=== PATIENT | female | born 1990 | race Caucasian/White ===

== ENCOUNTER 2021-07-19 11:49 | Emergency (ER) | payer BC, SELFPAY ==
--- NOTE | ~2021-07-19 | XR_ITS ---
EXAMINATION: XR chest 2V DATE: 07/19/2021 12:30 INDICATION: COVID-19 pneumonia. TECHNIQUE: Frontal and lateral views of the chest were obtained. COMPARISON: None. FINDINGS: The chest demonstrates clear lungs without pneumonia, pleural effusion, or pneumothorax. Th e heart size is normal. IMPRESSION: 1. No acute cardiopulmonary disease. Reviewed, dictated and finalized at location B. [facility] N[facility]
[2021-07-19 12:14] VITALS: BP 158/100; PULSE 75; RESP 14; TEMP 36.9; O2SAT 99
--- NOTE | 2021-07-19 12:17 | ECG_ITS ---
Measurements Intervals [place] Rate: 66 P: 44 AK: 112 QRS: 57 QRSD: 79 T: 50 QT: 389 QTc: 410 Interpretive Statements SINUS RHYTHM WITH SHORT [place] INTERVAL INCOMPLETE RIGHT BUNDLE BRANCH BLOCK BORDERLINE ECG Electronically Signed On 07-19-2021 13:27:32 AUTOMOBILE RELOCATION ENGINEER by Rogerio Eller D.O.
[2021-07-19 12:40] LABS: Basophils Percent Auto 0.4 % (0.2-1.2); Eosinophils Absolute Auto 0.1 K/mm3 (0-0.3); Eosinophils Percent Auto 1.8 % (0-4.4); Hematocrit 41.7 % (37.0-47.0); Hemoglobin 13.7 g/dL (12.0-15.0); Immature Granulocyte Absolute 0.02 K/mm3 (0.00-0.031); Immature Granulocyte Percent A 0.4 % (0-0.5); Lymphocytes Percent Auto 33.2 % (18.3-44.2); Mean Corpuscular HGB Conc 32.9 g/dl (32-36); Mean Corpuscular Volume 91.4 fl (80-100); Mean Platelet Volume 10.2 fl (7.4-10.4); Monocytes Absolute Auto 0.4 K/mm3 (0.1-0.6); Monocytes Percent Auto 7.7 % (2.6-8.5); Neutrophils Absolute Auto 3.1 K/mm3 (1.3-6.7); Neutrophils Percent Auto 56.5 % (45.5-73.1); Platelet Count Result 223 k/mm3 (150-375); Red Blood Count 4.56 M/mm3 (4.2-5.4); Red Cell Distribution Width 12.7 % (11.5-14.5); White Blood Count 5.4 K/mm3 (4.5-10.0)
[2021-07-19 12:47] LABS: INR 0.9; Partial Thromboplastin Time 29.7 SECONDS (22.3-36.8)
[2021-07-19 12:51] LABS: Alanine Aminotransferase 31 U/L (4-35); Albumin Level 4.6 g/dL (3.5-5.1); Alkaline Phosphatase 52 U/L (38-126); Anion Gap 10 mmol/L (8-16); Aspartate Amino Transferase 31 U/L (14-36); Bilirubin,Total 0.5 mg/dL (0.2-1.3); Blood Urea Nitrogen 6 mg/dL (7-17); Calcium 9.6 mg/dL (8.4-10.2); Carbon Dioxide 27 mmol/L (22-30); Chloride 104 mmol/L (98-107); Estimated CRCL calculation 114 ml/min; Estimated Glomerular Filt Rate > 60; Glucose 97 mg/dL (65-110); Lipase 60 U/L (23-300); Sodium 141 mmol/L (137-145)
[2021-07-19 13:03] LABS: Troponin I < 0.012 ng/mL (0.000-0.034)
[2021-07-19 13:06] VITALS: PULSE 86; RESP 16; O2SAT 97
--- NOTE | 2021-07-19 13:16 | ED.URI ---
HPI - URI/Sore Throat General Chief Complaint: Upper Respiratory Infection Stated Complaint: coivd-19+ astham short of breath Time Seen by Provider: 07/19/21 13:09 Source: patient Mode of arrival: ambulatory Limitations: no limitations History of Present Illness HPI Narrative: Patient is a 30-year-old female complaining of cough, nasal congestion, chest tightness and shortness of breath x3 days. Patient states that she tested positive for Covid on 07/17. Patient denies chest pain, abdominal pain, nausea, vomiting, diarrhea or rash. Patient states that she is fully vaccinated from Covid along with a booster. Review of Systems Review of Systems: All systems reviewed & are unremarkable except as noted in HPI and below Constitutional: Constitutional: Denies body ache(s), Denies excessive sweating, Denies fatigue, Denies headache(s), Denies lethargy, Denies malaise, Denies weakness and Denies weight loss Eyes: Eyes: Denies blurry vision, Denies change in vision and Denies loss of vision ENT: Denies dizziness, Denies ear discharge, Denies headache(s), Denies lip swelling, Denies epistaxis, Denies nasal congestion, Denies neck pain, Denies throat swelling and Denies tongue swelling Cardiovascular: Cardiovascular: Denies chest pain, Denies chest pain at rest, Denies chest pain with activity, Denies diaphoresis, Denies rapid heart rate, Denies edema, Denies irregular heart rhythm, Denies lightheadedness and Denies palpitations Respiratory: Respiratory: Denies chest congestion and Denies hemoptysis Gastrointestinal: Gastrointestinal: Denies abdominal pain, Denies melena, Denies hematochezia, Denies diarrhea, Denies nausea, Denies vomiting and Denies hematemesis Musculoskeletal: Musculoskeletal: Denies abnormal gait, Denies deformity, Denies joint swelling, Denies limited range of motion, Denies neck pain and Denies numbness Neurologic: Denies Abnormal speech present, Denies abnormal gait, Denies confusion, Denies dizziness, Denies headache(s), Denies focal weakness, Denies loss of vision, Denies numbness, Denies Other visual disturbances, Denies Sensory deficit (Neuro) and Denies weakness Psychiatric: Psychiatric: Denies confusion, Denies depression, Denies auditory hallucinations, Denies homicidal ideation and Denies suicidal ideation Endocrine: Endocrine: Denies cold intolerance, Denies excessive sweating, Denies fatigue, Denies heat intolerance and Denies palpitations Hematologic/Lymphatic: Hematologic/Lymphatic: Denies easy bleeding and Denies easy bruising Allergic/Immunologic: Allergic/Immunologic: Denies lip swelling, Denies throat swelling and Denies tongue swelling PMFSH Comments Past medical history: Asthma Family history: Unknown Social history: Non-smoker no EtOH or drug use Exam Const: General: cooperative, healthy appearing, comfortable, no acute distress, well developed, alert and awake; No confusion Orientation/consciousness: oriented to person, oriented to place, oriented to time, patient oriented x3 and No confusion Limitations: no limitations HENMT: Head: normal to inspection, normocephalic and atraumatic Ears: hearing grossly normal bilaterally, TM normal on the right and TM normal on the left General nose exam: Normal external nose present, Normal nares present and No nasal discharge present Face and sinus: normal facial exam Mouth: Yes Normal oral and palatal mucosa present, Yes lip normal, Yes tongue normal and Yes oropharynx normal Throat: posterior oropharynx normal, tonsils normal and uvula midline Eyes: General: appearance normal, both eyes and all related structures Pupils: Equal, round and reactive pupils present EOM: EOMs intact bilaterally Neck: Neck: normal visual inspection, full ROM, no lymphadenopathy and no meningeal signs Chest: Chest palpation & inspection: normal inspection of the chest Resp: Effort & Inspection: normal respiratory effort, able to speak in complete sentences, no respiratory distress
[2021-07-19 15:52] VITALS: BP 114/82; PULSE 81; RESP 12; O2SAT 97
== END 2021-07-19 15:52 | disposition home or self-care (01) ==
PROVIDERS: Emergency Medicine; Emergency Provider Emergency Medicine
DX: U07.1 COVID-19 (principal); Z87.09 Personal history of other diseases of the respiratory system
CPT/HCPCS: 36415; 71046; 80053; 83690; 84484; 85025; 85610; 85730; 93005; 96372; 99284; J1100

== ENCOUNTER 2021-12-27 16:38 | Emergency (ER) | payer BC, SELFPAY ==
--- NOTE | ~2021-12-27 | CT_ITS ---
EXAMINATION: CT abdomen pelvis wo con DATE: 12/27/2021 18:26 INDICATION: RLQ tenderness, +psoas sign TECHNIQUE: Computed tomography (CT) of the abdomen and pelvis was performed without intravenous contr ast. Automated exposure control and iterative reconstruction technique were employed. The dose-length product was 325.00 mGy-cm. COMPARISON: None FINDINGS: Lower thorax: Small hiatal hernia. Liver: Diffusely low density. Biliary/Gallbladder: Gallbladder is normal. No bile duct dilation. Pancreas: No mass or duct dilation. Spleen: Normal. Adrenals:No mass. Kidneys: No mass, stone, or hydronephrosis. GI tract: No small or large bowel dilation. Normal appendix. Mesentery/Peritoneum: No ascites, mass, or free air. Retroperitoneum: No mass. Pelvis: Pelvic organs are within normal limits. Soft Tissues: Soft tissues and body wall unremarkable. Bones: No acute osseous finding. IMPRESSION: Steatosis. Otherwise no acute abdominopelvic process. Reviewed, dictated and finalized at location K.
[2021-12-27 16:51] VITALS: BP 150/84; PULSE 92; RESP 15; TEMP 36.5; O2SAT 100
[2021-12-27 17:04] LABS: Basophils Percent Auto 0.5 % (0.2-1.2); Eosinophils Absolute Auto 0.1 K/mm3 (0-0.3); Eosinophils Percent Auto 0.9 % (0-4.4); Hematocrit 40.8 % (37.0-47.0); Hemoglobin 13.5 g/dL (12.0-15.0); Immature Granulocyte Absolute 0.05 K/mm3 (0.00-0.031); Immature Granulocyte Percent A 0.6 % (0-0.5); Lymphocytes Absolute Auto 2.22 K/mm3 (0.9-3.2); Lymphocytes Percent Auto 25.9 % (18.3-44.2); Mean Corpuscular HGB Conc 33.1 g/dl (32-36); Mean Corpuscular Hemoglobin 30.1 pg (26-34); Mean Corpuscular Volume 91.1 fl (80-100); Mean Platelet Volume 10.3 fl (7.4-10.4); Monocytes Absolute Auto 0.6 K/mm3 (0.1-0.6); Monocytes Percent Auto 6.9 % (2.6-8.5); Neutrophils Absolute Auto 5.6 K/mm3 (1.3-6.7); Neutrophils Percent Auto 65.2 % (45.5-73.1); Platelet Count Result 259 k/mm3 (150-375); Red Blood Count 4.48 M/mm3 (4.2-5.4); Red Cell Distribution Width 12.9 % (11.5-14.5); White Blood Count 8.6 K/mm3 (4.5-10.0)
[2021-12-27 17:13] LABS: Alanine Aminotransferase 38 U/L (6-35); Albumin Level 5.1 g/dL (3.5-5.1); Alkaline Phosphatase 64 U/L (38-126); Anion Gap 5 mmol/L (8-16); Aspartate Amino Transferase 38 U/L (14-36); Bilirubin,Total 0.5 mg/dL (0.2-1.3); Blood Urea Nitrogen 8 mg/dL (7-17); Calcium 9.2 mg/dL (8.4-10.2); Carbon Dioxide 26 mmol/L (22-30); Chloride 106 mmol/L (98-107); Estimated CRCL calculation 108 ml/min; Estimated Glomerular Filt Rate > 60; Glucose 98 mg/dL (65-110); Lipase 102 U/L (23-300); Potassium 3.9 mmol/L (3.4-5.0); Sodium 137 mmol/L (137-145)
[2021-12-27 18:08] LABS: Appearance Urine Clear (Clear); Bilirubin Urine Negative (Negative); Blood Urine Negative (Negative); Color Urine Yellow (Yellow); Glucose Urine UA Negative (Negative); Ketones Urine Negative (Negative); Leukocyte Esterase Ur Negative LEU/UL (Negative); Nitrate Urine Negative (Negative); Protein Urine Negative (Negative); Urobilinogen Urine 0.2 mg/dL (<2.0)
[2021-12-27 18:16] LABS: Bacteria Urine Trace /hpf; Squamous Epithelial Cell Urine Rare /hpf (Few)
[2021-12-27 18:17] LABS: Add Urine Microscopic? NO
[2021-12-27] MEDS: DICYCLOMINE HCL INJ 20 MG/2 ML VIAL IM (18:26)
--- NOTE | 2021-12-27 18:26 | ED.ABDPAIN ---
HPI - Abdominal Pain General Chief Complaint: Abdominal Pain <Henrietta uH PA-C - Last Filed: 12/28/21 01:39> Stated Complaint: RUQ ABD PAIN INT FOR MONTHS <Henrietta Hu PA-C - Last Filed: 12/28/21 01:39> Time Seen by Provider: 12/27/21 18:00 <Henrietta Hu PA-C - Last Filed: 12/28/21 01:39> History of Present Illness HPI narrative: Patient is a 31-year-old female here for evaluation of right lower quadrant abdominal pain. Patient states that she has had the pain for about 1 month, but is has worsened in nature and developed a new quality over the past 2 days or so. The pain is severe in nature, worse with certain positions, and also worse when she is up and moving around. Today, she states the pain radiated into her low back and also her hip, which prompted her to visit an urgent care. Urgent care sent patient to emergency department with concerns for appendicitis. Patient states she has had a low-grade fever, mild nausea but no vomiting. No diarrhea or constipation. Patient states that she has chronic issues with having heavy and painful menstrual cycles, her last one was 3 weeks ago. Does note that she was on control her entire adult life, and she stopped control about 4 months ago. No vaginal discharge, no new sexual partners, no concern for STI, dyspareunia, dysuria, hematuria. <Henrietta Hu PA-C - Last Filed: 12/28/21 01:39> Related Data Allergies/Adverse Reactions: Allergies Allergy/AdvReac Type Severity Reaction Status Date / Time No Known Allergies Allergy Verified 12/27/21 17:52 <Henrietta Hu PA-C - Last Filed: 12/28/21 01:39> Review of Systems Review of Systems: Gen: Reports low-grade fevers. Eyes: Denies eye pain or visual change ENT: Denies congestion Respiratory: Denies shortness of breath or cough CV: Denies chest pain or palpitations GI: Reports abdominal pain and nausea. Denies emesis or diarrhea : Reports painful menstrual cycles. Denies burning, urgency, frequency or hematuria Musculoskeletal: Denies back pain or muscle pain Neuro: Denies numbness, tingling, weakness or focal weakness Skin: Denies rash Except as documented, all other systems reviewed and negative <Henrietta Hu PA-C - Last Filed: 12/28/21 01:39> Exam Narrative: APPEARANCE: Well appearing, no pain in distress, well-nourished. Head: normocephalic and atraumatic. EYES: PERRLA/EOMI, conjunctivae clear NOSE: No nasal drainage EARS: External ear normal in appearance THROAT: Oropharynx is clear. Mucous membranes are moist. NECK: Supple. No adenopathy, no masses. RESPIRATORY: Airway patent, respirations nonlabored. Clear to auscultation bilaterally, no rales, rhonchi, wheezing. CARDIOVASCULAR: Regular rate and rhythm without murmurs, rubs, or gallops. ABDOMINAL: Tender in right lower quadrant. Psoas sign is positive. Normoactive bowel sounds. Soft. No guarding. MUSCULOSKELETAL: Straight leg raise negative bilaterally. No midline tenderness along CT or L-spine. No paraspinal lumbar muscle tenderness or spasm. Extremities are warm and well-perfused. Moves all extremities well. No edema. NEURO: Normal speech. No focal neurologic deficits. SKIN: Skin is warm and dry. No rashes. PSYCHIATRIC: Normal affect/mood. <Henrietta Hu PA-C - Last Filed: 12/28/21 01:39> Course SOFTWARE ENGINEER/PA Physician Supervision For this patient encounter, I reviewed the SOFTWARE ENGINEER or PA documentation, treatment plan, and medical decision making <Kane Fatima MD - Last Filed: 01/07/22 07:06> Vital Signs Vital signs: Vital Signs Temperature 97.7 F 12/27/21 16:51 Pulse Rate 92 12/27/21 16:51 Respiratory Rate 15 12/27/21 16:51 Blood Pressure 150/84 H 12/27/21 16:51 Pulse Oximetry 100 12/27/21 16:51 Oxygen Delivery Room Air 12/27/21 16:51 Temperature 97.7 F 12/27/21 16:51 Pulse Rate 74 12/27/21 19:10 Respiratory Rate
[2021-12-27 19:10] VITALS: PULSE 74; RESP 16; O2SAT 99
== END 2021-12-27 19:11 | disposition home or self-care (01) ==
PROVIDERS: Emergency Medicine; Emergency Provider Emergency Medicine
DX: K58.9 Irritable bowel syndrome, unspecified (principal); K76.0 Fatty (change of) liver, not elsewhere classified
CPT/HCPCS: 36415; 74176; 80053; 81003; 81025; 83690; 85025; 96372; 99284; J0500

== ENCOUNTER 2022-12-14 00:18 | Day surgery (SDC) | payer BC, SELFPAY ==
[2022-12-08 13:43] VITALS: BMI 29.2
--- NOTE | 2022-12-08 13:50 | PC.NURSE ---
Report to the Outpatient Waiting Room, entrance under the green pavilion located off [facility], at time 0600 on date 12/14/22. Planned Procedure Time: 0730. Time changes happen often and if your time is changed the preop area will call you the afternoon before. - You and your visitor will be asked to self-screen and do not enter if you have any COVID symptoms. - A mask is optional within the hospital at this time. Patients may have clear liquids (water, carbonated beverages, clear teas, apple juice) until 3 hours prior to surgery with a maximum of 20 ounces. - No food from midnight until time of surgery Take the following medications with a SIP of water the morning of surgery: INHALERS, LEXAPRO DO NOT STOP ANY OF YOUR OTHER PRESCRIPTION MEDICATIONS PRIOR TO SURGERY EXCEPT THE FOLLOWING Medications to discontinue per physician: VITAMINS/SUPPLEMENTS Date to take last dose: 12/10/22 Please no make-up, nail spanish, hairspray, perfume, deodorant, or body powder the day of surgery. No jewelry (including any body piercings) or valuables the day of surgery, leave them at home. Please take a shower or bath the night before, or the morning of, surgery with an antibacterial soap. Wear comfortable, loose fitting clothing. - Jewelry must be removed prior to entering the operating room. Rings and piercings that are not removed may be cut off. - The hospital will not accept responsibility for valuables. - Please leave all valuables, including medications, at home the day of surgery. If you are going home after surgery, a licensed livery car driver must drive you home. - NO public transportation without another adult if you receive anesthesia. - We recommend that an adult stay with you for 24 hours following discharge. - We also recommend that you do not drive, make important decision, drink alcoholic beverages, or take any drugs that were not prescribed by your health care provider for at least 24 hours after your discharge time. Follow any additional instructions given to you from your surgeon. If you or anyone in your household have experienced Covid symptoms in the past week, please notify your surgeon or the nurse liaison at the phone number below for possible testing. Telephone instructions given to PT - STEF RAMIREZ and asked if any additional questions and then verbalized understanding. Patient advised to call surgeon office or pre surgery nurse liaison [phone] if any additional questions.
--- NOTE | 2022-12-13 11:49 | PM.IMHP ---
H&P: HPI History of Present Illness Date/Time: 12/13/22 11:49 32-year-old female presents with complaints of pelvic pain and irregular menstrual cycles. She states that since the beginning of her menstrual cycles of 14 she has had severe dysmenorrhea and has been on control pills which have somewhat routinely and regularly taking care of the issue. Last year she stopped the pills repaired at time had significant increase in her symptomatology. She she has restarted her control pills and has continued with pelvic pain and irregular bleeding in spite of this. Also seen her primary care who is evaluating her GI tract to be sure there was no issues in that regard. Is interested in in the near future therefore will evaluate her and to see if there is anything further needs to be performed or any other diagnoses warranting intervention. Chief Complaint: pelvic pain Review of Systems Review of Systems: All systems reviewed & are unremarkable except as noted in HPI and below PMFSH Past Medical History Medical History Allergies Anxiety Asthma Fatty liver IBS (irritable bowel syndrome) Family History Family History Father Rheumatoid arthritis Fatty liver Grandparent Diabetes mellitus Depression Social History Social History Smoking packs per day: 0.5 Smoking cigarettes per day: 10.0 Years smoked: 10 Smoking pack-years: 5.00 Smoking status: Current every day smoker Tobacco type: cigarettes Alcohol intake: current Drinks per week: 10 Substance use: never Substance use type: does not use Lack of Transportation: No Lack of Food: Never True Current Housing: I Have Housing Concerned About Future Housing: No Difficulty Paying Gas/Electric Bills: No Difficulty Paying for Meds: No Currently Unemployed: No Education: Bachelor's Degree Difficulty w/ Childcare or Family Care: No Living arrangements: with family Additional living arrangements comments: Occupation/Education: unemployed Gender identity (if verbalized by the patient): Female Sexual Orientation (if Verbalized by the Patient): Bisexual Spiritual care concerns: No Meds Home Medications and Allergies Home Medications Medication Instructions Recorded Confirmed Type cetirizine 10 mg tablet (Zyrtec) 10 mg PO DAILY PRN Allergy Symptoms 01/18/22 12/08/22 History folic acid 400 mcg tablet 0.4 mg PO DAILY 01/18/22 12/08/22 History pcpaunwpyshb-Bm-zadi-minerals 1 tablet PO DAILY 01/18/22 12/08/22 History norgestimate 0.25 mg-ethinyl 1 tablet PO DAILY #84 tabs 02/14/22 12/08/22 Rx estradiol 35 mcg tablet (Coryell-Linyah) Symbicort 160 mcg-4.5 2 puff inhalation Q12H #10.2 grams 04/14/22 12/08/22 Rx mcg/actuation HFA aerosol inhaler (budesonide-formoterol) escitalopram oxalate 10 mg tablet 10 mg PO DAILY #90 tabs 04/14/22 12/08/22 Rx (Lexapro) montelukast 10 mg tablet 10 mg PO DAILY #90 tabs 11/01/22 12/08/22 Rx (Singulair) cholecalciferol (vitamin D3) 10 10 mcg PO DAILY 11/09/22 12/08/22 History mcg (400 unit) capsule albuterol sulfate 90 mcg/actuation See Rx Instructions .Route 11/27/22 12/08/22 Rx aerosol inhaler .COMPLEX #8.5 grams Allergies Allergy/AdvReac Type Severity Reaction Status Date / Time No Known Allergies Allergy Verified 12/08/22 13:41 Exam Const: General: cooperative, healthy appearing and comfortable Resp: Effort & Inspection: normal respiratory effort Auscultation: clear to auscultation bilaterally Cardio: Rate: regular rate Rhythm: regular rhythm GI: Inspection: normal to inspection GI Palp: Yes abdominal tenderness ( mild tenderness bilateral lower quadrants) : External Female Exam: normal external appearance Speculum Exam - Vagina: normal appearance of the
[2022-12-14] VITALS (8 sets, daily range): BP systolic 110–150; BP diastolic 55–107; PULSE 81–101; RESP 13–18; TEMP 36.2–36.8; O2SAT 95–100
[2022-12-14] MEDS: ACETAMINOPHEN 500 MG TABLET 1000 MG PO (06:36)
[2022-12-14] MEDS: LACTATED RINGERS 1,000 ML 30 ML IV CONT ×2 (06:54→09:16)
[2022-12-14] MEDS: KETOROLAC 15 MG/ML VIAL (*BKC) IV PUSH (06:55)
--- NOTE | 2022-12-14 07:08 | WPDANESEPPF ---
Anes - Initial Pre Proc Eval Procedure: Operation Date: 12/14/22 07:30 Proposed Procedures p Hysteroscopy Dilation and Curettage, Diagnostic Laparoscopy, Possible Lysis of Adhesions - Rhett Chun MD Date/Time: 12/14/22 07:08 Surgeon: Rhett Chun MD Pre Op Diagnosis: Irrg Bleeding, Pelvic Pain Patient Data Age: 32 Gender: F Height: 1.6 m Weight: 71.4 kg Last Vital Signs Temp 98.3 F 12/14/22 07:05 Pulse 101 H 12/14/22 07:05 Resp 18 12/14/22 07:05 BP 113/93 H 12/14/22 07:05 Pulse Ox 99 12/14/22 07:05 O2 Del Method Room Air 12/14/22 07:05 Allergies Allergy/AdvReac Type Severity Reaction Status Date / Time No Known Allergies Allergy Verified 12/08/22 13:41 Home Medications Medication Instructions Recorded Confirmed Type cetirizine 10 mg tablet (Zyrtec) 10 mg PO DAILY PRN Allergy Symptoms 01/18/22 12/08/22 History folic acid 400 mcg tablet 0.4 mg PO DAILY 01/18/22 12/08/22 History sgnjvdrfqeob-Ri-ucla-minerals 1 tablet PO DAILY 01/18/22 12/08/22 History norgestimate 0.25 mg-ethinyl 1 tablet PO DAILY #84 tabs 02/14/22 12/08/22 Rx estradiol 35 mcg tablet (Forrest-Linyah) Symbicort 160 mcg-4.5 2 puff inhalation Q12H #10.2 grams 04/14/22 12/08/22 Rx mcg/actuation HFA aerosol inhaler (budesonide-formoterol) escitalopram oxalate 10 mg tablet 10 mg PO DAILY #90 tabs 04/14/22 12/08/22 Rx (Lexapro) montelukast 10 mg tablet 10 mg PO DAILY #90 tabs 11/01/22 12/08/22 Rx (Singulair) cholecalciferol (vitamin D3) 10 10 mcg PO DAILY 11/09/22 12/08/22 History mcg (400 unit) capsule albuterol sulfate 90 mcg/actuation See Rx Instructions .Route 11/27/22 12/08/22 Rx aerosol inhaler .COMPLEX #8.5 grams Patient hx anesthesia problems: none Family hx anesthesia problems: none Results Review: All pre-operative results and documents have been reviewed as part of the pre-operative evaluation. [facility] Past Medical History Medical History Allergies Anxiety Asthma Fatty liver IBS (irritable bowel syndrome) Family History Family History Father Rheumatoid arthritis Fatty liver Grandparent Diabetes mellitus Depression Social History Social History Smoking packs per day: 0.5 Smoking cigarettes per day: 10.0 Years smoked: 10 Smoking pack-years: 5.00 Smoking status: Current every day smoker Tobacco type: cigarettes Alcohol intake: current Drinks per week: 10 Substance use: never Substance use type: does not use Lack of Transportation: No Lack of Food: Never True Current Housing: I Have Housing Concerned About Future Housing: No Difficulty Paying Gas/Electric Bills: No Difficulty Paying for Meds: No Currently Unemployed: No Education: Bachelor's Degree Difficulty w/ Childcare or Family Care: No Living arrangements: with family Additional living arrangements comments: Occupation/Education: unemployed Gender identity (if verbalized by the patient): Female Sexual Orientation (if Verbalized by the Patient): Bisexual Spiritual care concerns: No Anes - Eval Final PreProcedure Day of Procedure 12/14/22 07:08 Patient weight: normal Heart: regular rate and rhythm Lungs: clear to auscultation Airway: Mallampati scale class II Neurological: alert and oriented Last oral intake: >/= 8 hours ASA classification: II Emergent: no Anesthetic plan: proceed Anesthesia type and monitoring: general ETT and standard monitoring Results Review: All pre-operative results and documents have been reviewed as part of the pre-operative evaluation. Informed Consent: The patient's anesthetic plan and its attendant risks and benefits were discussed with the patient/family/POA. Questions were solicited and answers provided to the satisfaction of the pat
--- NOTE | 2022-12-14 07:10 | WPDHPUPDATE1 ---
History and Physical Update Update Date/Time: 12/14/22 07:10 History and Physical has been reviewed, including an updated exam of the patient. There are NO changes in the patient's condition. Risks, benefits, and alternatives have been discussed and questions answered. Patient agrees to proceed with procedure.
--- NOTE | 2022-12-14 08:48 | W.PM.PROC2 ---
Procedure Note - Detailed Date of Procedure 12/14/22 Pre-op Diagnosis 1. Irregular bleeding 2. Dysmenorrhea Post-op Diagnosis Same (3. Endometriosis) Procedure Performed 1. Diagnostic hysteroscopy 2. Uterine curettings 3. Diagnostic laparoscopy 4. Electrocautery cauterization of endometriosis Surgeon Rhett Chun MD Anesthesia General Findings 1. Hysteroscopy with no abnormalities 2. Laparoscopic evaluation revealed uterus tubes are without abnormality with endometriosis in the posterior cul-de-sac Description of Procedure Patient was prepped and draped usual manner for this procedure. Cervical instruments placed for uterine mobility. Abdominal trocars were placed under direct visualization. Findings were noted as above in using electrocautery the endometriosis was cauterized in the posterior cul-de-sac. Tubes and ovaries did not show any abnormalities and the uterus itself also was mobile without abnormalities. Gas allowed to escape and incisions were approximated using 4-0 Monocryl. Attention was then placed to the vagina and cervix was dilated to allow the hysteroscope to be placed with normal findings noted. Curettings were obtained, there was no significant bleeding, the patient was sent to recovery room stable condition. Estimated Blood Loss 10 Drains No Packing No Pathology Yes Complications No immediate complications Condition Stable Disposition PACU [facility] Billing Surgery - Charge Forward: Surgery Billing
[2022-12-14] MEDS: fentaNYL CITRATE INJ (*CRX) 100 MCG/2 ML VIAL 25 MCG IV PUSH ×2 (09:04→09:07)
[2022-12-14] MEDS: oxyCODONE HCL (*CRX) 5 MG TAB IR PO (09:39)
== END 2022-12-14 10:16 | disposition home or self-care (01) ==
PROVIDERS: PCP Physician Assistant; Visit Provider Obstetrics & Gynecology
PROC: 0UDB8ZZ Extraction of Endometrium, Via Natural or Artificial Opening Endoscopic (ICD-10-PCS; CPT 58558; principal; 2022-12-14 07:30)
DX: N92.6 Irregular menstruation, unspecified (principal); N94.6 Dysmenorrhea, unspecified; N80.329 Endometriosis of the posterior cul-de-sac, unspecified depth; R10.2 Pelvic and perineal pain; J45.909 Unspecified asthma, uncomplicated; F41.9 Anxiety disorder, unspecified; Z79.51 Long term (current) use of inhaled steroids; F17.210 Nicotine dependence, cigarettes, uncomplicated
CPT/HCPCS: 58558; 58662; 88305; A9270; J1100; J1885; J2250; J2405; J2704; J3010; J7120

== ENCOUNTER 2023-11-06 02:03 | Day surgery (SDC) | payer BC, SELFPAY ==
[2023-10-29 14:15] VITALS: BMI 27.5
[2023-11-06 10:22] VITALS: BP 138/99; PULSE 93; RESP 18; TEMP 36.2; O2SAT 98
[2023-11-06] MEDS: LACTATED RINGERS 1,000 ML 150 ML IV CONT (10:30)
--- NOTE | 2023-11-06 10:59 | WPDANESEPPF ---
Anes - Initial Pre Proc Eval Procedure: Operation Date: 11/06/23 11:30 Proposed Procedures p Colonoscopy - Kaveh Carolina MD Date/Time: 11/06/23 10:59 Surgeon: Kaveh Carolina MD Pre Op Diagnosis: Melena Patient Data Age: 33 Gender: F Height: 1.6 m Weight: 72.4 kg Last Vital Signs Temp 97.2 F L 11/06/23 10:22 Pulse 93 11/06/23 10:22 Resp 18 11/06/23 10:22 BP 138/99 H 11/06/23 10:22 Pulse Ox 98 11/06/23 10:22 O2 Del Method Room Air 11/06/23 10:22 Allergies Allergy/AdvReac Type Severity Reaction Status Date / Time No Known Allergies Allergy Verified 11/06/23 10:21 Home Medications Medication Instructions Recorded Confirmed Type cetirizine 10 mg tablet (Zyrtec) 10 mg PO DAILY PRN Allergy Symptoms 01/18/22 10/29/23 History elqnilhumssg-Gj-xfek-minerals 1 tablet PO DAILY 01/18/22 10/29/23 History drospirenone 3 mg-ethinyl 1 tablet PO DAILY #84 tabs 12/29/22 10/29/23 Rx estradiol 0.02 mg tablet (ALY (28)) albuterol sulfate 2.5 mg/3 mL 2.5 mg (3 mL) inhalation Q4-6H PRN 10/16/23 10/29/23 Rx (0.083 %) solution for nebulization shortness of breath or wheezing #90 mL albuterol sulfate 90 mcg/actuation See Rx Instructions .Route 10/29/23 10/29/23 History aerosol inhaler .COMPLEX PRN Shortness Of Breath Or Wheezing naproxen 500 mg tablet 500 mg PO BID 10/29/23 10/29/23 History Patient hx anesthesia problems: none Family hx anesthesia problems: none Results Review: All pre-operative results and documents have been reviewed as part of the pre-operative evaluation. [facility] Past Medical History Medical History Allergies Anxiety Asthma Fatty liver IBS (irritable bowel syndrome) Surgical History Surgical History History of hysteroscopy (12/14/22) Diagnostic hysteroscopy Uterine curettings/ Diagnostic laparoscopy Electrocautery cauterization of endometriosis Family History Family History Father Rheumatoid arthritis Fatty liver Grandparent Diabetes mellitus Depression Social History Social History Smoking packs per day: 0.5 Smoking cigarettes per day: 10.0 Years smoked: 10 Smoking pack-years: 5.00 Smoking status: Light tobacco smoker Tobacco type: cigarettes Additional smoking assessment comments: CUTTING WAY BACK AND TRYING TO QUIT Alcohol intake: current Drinks per week: 10 Substance use: current Substance use type: marijuana Other substance usage details: OCC.IN EVENING FOR PAIN Lack of Transportation: No Lack of Food: Never True Current Housing: I Have Housing Concerned About Future Housing: No Difficulty Paying Gas/Electric Bills: No Difficulty Paying for Meds: No Currently Unemployed: No Education: Bachelor's Degree Difficulty w/ Childcare or Family Care: No Living arrangements: with family Additional living arrangements comments: Occupation/Education: unemployed Gender identity (if verbalized by the patient): Female Sexual Orientation (if Verbalized by the Patient): Bisexual Spiritual care concerns: No Anes - Eval Final PreProcedure Day of Procedure 11/06/23 10:59 Patient weight: normal Heart: regular rate and rhythm Lungs: clear to auscultation Airway: Mallampati scale class II Neurological: alert and oriented Last oral intake: >/= 8 hours ASA classification: II Emergent: no Anesthetic plan: proceed Anesthesia type and monitoring: general GIVS and standard monitoring Results Review: All pre-operative results and documents have been reviewed as part of the pre-operative evaluation. Informed Consent: The patient's anesthetic plan and its attendant risks and benefits were discussed with the patient/family/POA. Questions were solicited
--- NOTE | 2023-11-06 11:04 | PM.HPGS ---
History of Present Illness History of Present Illness Consent: Risks, benefits, and alternatives have been discussed and questions answered. Patient agrees to proceed with procedure. Chief complaint: blood stool Narrative: Adrienne Lea is a 33 year old female here for colonoscopy, had intermittent blood in stool, also abdominal discomfort but also endometriosis. Review of Systems Review of Systems: All systems reviewed & are unremarkable except as noted in HPI and below PMFSH Past Medical History Medical History (Updated 11/06/23 @ 11:05 by Kaveh Carolina MD) Allergies Anxiety Asthma Fatty liver IBS (irritable bowel syndrome) Rectal bleeding Surgical History Surgical History History of hysteroscopy (12/14/22) Diagnostic hysteroscopy Uterine curettings/ Diagnostic laparoscopy Electrocautery cauterization of endometriosis Family History Family History Father Rheumatoid arthritis Fatty liver Grandparent Diabetes mellitus Depression Social History Social History Smoking packs per day: 0.5 Smoking cigarettes per day: 10.0 Years smoked: 10 Smoking pack-years: 5.00 Smoking status: Light tobacco smoker Tobacco type: cigarettes Additional smoking assessment comments: CUTTING WAY BACK AND TRYING TO QUIT Alcohol intake: current Drinks per week: 10 Substance use: current Substance use type: marijuana Other substance usage details: OCC.IN EVENING FOR PAIN Lack of Transportation: No Lack of Food: Never True Current Housing: I Have Housing Concerned About Future Housing: No Difficulty Paying Gas/Electric Bills: No Difficulty Paying for Meds: No Currently Unemployed: No Education: Bachelor's Degree Difficulty w/ Childcare or Family Care: No Living arrangements: with family Additional living arrangements comments: Occupation/Education: unemployed Gender identity (if verbalized by the patient): Female Sexual Orientation (if Verbalized by the Patient): Bisexual Spiritual care concerns: No Meds Home Medications and Allergies Home Medications Medication Instructions Recorded Confirmed Type cetirizine 10 mg tablet (Zyrtec) 10 mg PO DAILY PRN Allergy Symptoms 01/18/22 10/29/23 History lrkoqeynxcsj-Rx-lely-minerals 1 tablet PO DAILY 01/18/22 10/29/23 History drospirenone 3 mg-ethinyl 1 tablet PO DAILY #84 tabs 12/29/22 10/29/23 Rx estradiol 0.02 mg tablet (ALY (28)) albuterol sulfate 2.5 mg/3 mL 2.5 mg (3 mL) inhalation Q4-6H PRN 10/16/23 10/29/23 Rx (0.083 %) solution for nebulization shortness of breath or wheezing #90 mL albuterol sulfate 90 mcg/actuation See Rx Instructions .Route 10/29/23 10/29/23 History aerosol inhaler .COMPLEX PRN Shortness Of Breath Or Wheezing naproxen 500 mg tablet 500 mg PO BID 10/29/23 10/29/23 History Allergies Allergy/AdvReac Type Severity Reaction Status Date / Time No Known Allergies Allergy Verified 11/06/23 10:21 Vital Signs Vital Signs - 24 hr 11/06/23 10:22 Temperature 97.2 F L Pulse Rate 93 Respiratory Rate 18 Blood Pressure 138/99 H Pulse Oximetry 98 Oxygen Delivery Room Air Exam Const: General: comfortable and no acute distress HENMT: Face/Nose/Sinus: Normal nares present Eyes: General: appearance normal, both eyes and all related structures Neck: Neck: no JVD Resp: Auscultation: clear to auscultation bilaterally Cardio: Rate: regular rate Rhythm: regular rhythm GI: Inspection: non-distended GI Palp: Yes Soft to palpation Skin: General skin exam: normal color Neuro: General: gait normal Speech: normal speech Extrem: General: normal to inspection Psych: Mental Status: mental status grossly normal Assessment and Plan Assessment and plan (1) Rectal bleeding: Code(s)
[2023-11-06 11:37] VITALS: BP 120/74; PULSE 89; RESP 18; O2SAT 99
[2023-11-06 11:47] VITALS: BP 123/79; PULSE 71; RESP 20; O2SAT 100
[2023-11-06 11:57] VITALS: BP 131/80; PULSE 73; RESP 18; O2SAT 100
== END 2023-11-06 12:02 | disposition home or self-care (01) ==
PROVIDERS: PCP Physician Assistant; Visit Provider Internal Medicine Gastroenterology
PROC: 0DJD8ZZ Inspection of Lower Intestinal Tract, Via Natural or Artificial Opening Endoscopic (ICD-10-PCS; CPT 45378; principal; 2023-11-06 11:30)
DX: K57.30 Diverticulosis of large intestine without perforation or abscess without bleeding (principal); K64.8 Other hemorrhoids; N80.9 Endometriosis, unspecified; J45.909 Unspecified asthma, uncomplicated; K76.0 Fatty (change of) liver, not elsewhere classified; Z79.51 Long term (current) use of inhaled steroids; F17.210 Nicotine dependence, cigarettes, uncomplicated; F12.90 Cannabis use, unspecified, uncomplicated
CPT/HCPCS: 45378; J2704; J7120

== ENCOUNTER 2024-11-13 10:32 | Outpatient (CLI) | payer BC, SELFPAY ==
[2024-11-13 10:50] LABS: Hematocrit 39.7 % (37.0-47.0); Mean Corpuscular HGB Conc 32.7 g/dl (32-36); Mean Corpuscular Hemoglobin 29.6 pg (26-34); Mean Corpuscular Volume 90.4 fl (80-100); Mean Platelet Volume 10.3 fl (7.4-10.4); Platelet Count Result 257 k/mm3 (150-375); Red Blood Count 4.39 M/mm3 (4.2-5.4); Red Cell Distribution Width 12.4 % (11.5-14.5); White Blood Count 9.1 K/mm3 (4.5-10.0)
[2024-11-13 11:01] LABS: Alanine Aminotransferase 71 U/L (6-35); Albumin Level 4.5 g/dL (3.5-5.1); Alkaline Phosphatase 67 U/L (38-126); Anion Gap 9 mmol/L (4-12); Aspartate Amino Transferase 53 U/L (14-36); Bilirubin,Total 0.4 mg/dL (0.2-1.3); Blood Urea Nitrogen 10 mg/dL (7-17); Calcium 9.8 mg/dL (8.4-10.2); Carbon Dioxide 27 mmol/L (22-30); Chloride 103 mmol/L (98-107); Cholesterol 191 mg/dL (0-200); Estimated Glomerular Filt Rate > 60; Glucose 79 mg/dL (65-110); HDL Direct 67 mg/dL; Potassium 4.2 mmol/L (3.4-5.0); Sodium 139 mmol/L (137-145); Triglycerides 191 mg/dL (<150)
[2024-11-13 11:12] LABS: LDL Cholesterol Direct 99 mg/dL
[2024-11-13 11:32] LABS: Thyroid Stimulating Hormone 0.716 uIU/mL (0.465-4.680)
--- OUTSIDE RECORDS SUMMARY | 2024-11-13 11:54 | XMS_ITS | Continuity of Care Document ---
Author Organization [facility] Address [address], [address] [place] [address] Phone Care Team Providers Care Insulation Power Unit Tender Name Role Phone Unavailable Unavailable Unavailable Allergies, Adverse Reactions, Alerts Substance Reaction Status Criticality No Known allergies Medications Medication Instructions Dosage Effective Dates (start - stop) Status Comments Medrol (Patrick) 4 mg tablets in a dose pack Take as directed - Active doxycycline hyclate 100 mg capsule take 1 capsule by oral route 2 times every day - No Longer Active doxycycline hyclate 100 mg capsule take 1 capsule by oral route 2 times every day x1 dose; then 1 capsule (100 mg) by oral route daily 1 capsule - No Longer Active Problems Condition Type Effective Dates (start - stop) Clini [facility] Status Comments No Known Problems Procedures Procedure Date Rocephine Sodium Injectible Therapeutic, Prophylactic, O r Diagnostic Injection; Subcutaneous Or Intramuscula OV EXPANDED, EST Methylprednisolone 80 MG inj Therapeutic, Prophylactic, O r Diagnostic Injection; Subcutaneous Or Intramuscula URINE TEST OV FOCUSED, NEW Advance Directives Directive Yes / No Effective Date File Name No Information Encounters Encounter Description Practice Location Reason(s) For Visit Diagnoses Date Provider Providers Copied on Encounter OV EXPANDED, EST [facility], [address], [address], [place], [address], [place] tel:[phone] [place] [facility] problems (chief complaint) Cellulitis 4 No Information OV FOCUSED, [facility], [address], [address], [place], [address], [place] tel:[phone] [place] acne (chief complaint) Cellulitis and abscess of faceOther acnePregnancy examination or test, unconfirmed 4 No Information Family History Family Member Type Diagnosis Age At Onset Problem (finding) No family hist ory of Diabetes mellitus Maternal uncle Problem (finding) coronary arterioscler osis Maternal grandfather Problem (finding) coronary arteri osclerosis Problem (finding) No family history of Ca ncer Payers Payer name Insurance type Covered democrat ID Authoriza tion(s) Self Pay CI [id number] Social History Type Description Quantity Date Captured Comments Alcohol Use Details Unknown Caffeine Use Details Unknown Tobacco Use Status No Information Smoking Status No Information Sex Female Vital Signs Date / Time: Height Weight BMI Pulse Rate Blood Pressure Temperature Respiratory Rate Body Surface Area Head Circumference Head Circ. Percentile Wt./Romario. Percentile BMI percentile Pulse Ox Inhaled Ox 10:58 AM 63.50 in 51.619 kg (113.80 lbs) 19.8 4 kg/m eter (2) 77 /min 122/70 mm[Hg] 98.60 F 18 /min 98 % Chief Complaint And Reason For Visit From encounter dated '10/09/2013 11:00'. Eye problems (chief complaint). Description: Onset: 2 Days. The severity of the problem is mild. The symptoms are persistent. Symptoms located at right upper lid. Discomfort is described as sharp pain. Discharge is described as clear. Symptoms are not associated with concurrent URI symptoms, exposure to pink eye or recent eye drop use. Denies aggravating factors. Denies relieving factors. Associated symptoms include eye pain, facial edema, rash around affected eye(s) and red/purple color aroundeye. Pertinent negatives include blurred vision, conjunctival edema, conjunctival infection, cough,decreased appetite, ear pain, fever, headache, itching, lymphadenopathy, malaise, nasal congestion,rhinorrhea, rubbing eye, sore throat, tearing or vision loss. Reason For Referral Reason For Referral No Information History Of Present Illness Encounter Date Complaint History Of Prese nt Illness Eye problems Onset: 2 Days. T he severity of the problem is mild. The symptoms are persistent. Symptoms located at right upper lid. Discomfort is described as sharp pain. Discharge is described as clear. Symptoms are not associated with concurrent URI symptoms, exposure to pink eye or recent eye drop use. Denies aggravating factors. Denies relieving factors. Associated symptoms include eye pain, facial edema, rash around affected eye(s) and red/purple color around eye. Pertinent negatives include blurred vision, conjunctival edema, conjunctival infection, cough, decreased appetite, ear pain, fever, headache, itching, lymphadenopathy, malaise, nasal congestion, rhinorrhea, rubbing eye, sore throat, tearing or vision loss. Functional Status Date Functional Assessmen t No Information Instructions Date Instruction Additional Infor mation No Information Assessments Type Assessment Date assessment Cellulitis Mental Status Date Cognitive Assessment Orientation - [place] ed to time, place, person, situation. Patient Care Teams Name Effective Dates (start - stop) Status Members No Information
--- OUTSIDE RECORDS SUMMARY | 2024-11-13 11:54 | XMS_ITS | Continuity of Care Document ---
Author Organization [facility] Address [address] [place] [address] Phone Care Team Providers Care Bronc Buster Name Role Phone Juvenal BANUELOS, Diane Gordon Unavailable Unav ailable Allergies, Adverse Reactions, Alerts Substance Reaction Status Criticality No Known Allergies Active No Inform ation Procedures Procedure Date Refraction New Routine Exam Comprehensive Advance Directives Directive Yes / No Effective Date File Name No Information Encounters Encounter Description Practice Location Reason(s) For Visit Diagnoses Date Provider Providers Copied on Encounter [facility], [address], [place], [place], [id number], [place] tel:[phone] [facility] routine exam (chief complaint) Encounter for exam of eyes and vision w abnormal findingsMyo andrei, bilateral Juvenal Gordon. [address], [place], [address], [place]. tel:[phone] Referring Provider: Diane Sanford OD, [address], [place], [address]. tel:[phone] Family History Family Member Type Diagnosis Age At Onset Problem (finding) Family history of glauc nikki Payers Payer name Insurance type Covered alliance party ID Authoriza tion(s) No Information Social History Type Description Quantity Date Captured Comments Alcohol Use Details Caffeine Use Details 2 cups per day Tobacco Use Status Cigarette smoker Smoking Status Current every day smoker Smoking Tobacco Use Details Cigarette: No Details Available Cigarette: No Details Available Sex Female Chief Complaint And Reason For Visit From encounter dated '06/12/2020 10:00'. routine exam (chief complaint). Description: First time to [facility]. Here for routine eye exam. CARMEL about 3 years ago. Mild blur with habitual glasses. No ocular pain, no flashes/floaters, no diplopia. Patient's mother has glaucoma. Reason For Referral Reason For Referral No Information History Of Present Illness Encounter Date Complaint History Of Prese nt Illness routine exam First time to [facility] . Here for routine eye exam. CARMEL about 3 years ago. Mild blur with habitual glasses. No ocular pain, no flashes/floaters, no diplopia. Patient's mother has glaucoma. Functional Status Date Functional Assessmen t No Information Instructions Date Instruction Additional Infor shanthi Encounter for examin ation of eyes and vision with abnormal findings, Related to Encounter for examination of eyes and vision with abnormal findings Myopia, bilateral, OU Related to Myopia, bilateral Assessments Type Assessment Date No Information Patient Care Teams Name Effective Dates (start - stop) Status Members No Information
--- OUTSIDE RECORDS SUMMARY | 2024-11-13 11:54 | XMS_ITS | Continuity of Care Document ---
Author Organization [facility] Address [address] [id number] [address] Phone Care Team Providers Care Meter Reader Name Role Phone Travis Mtz Unavailable Unavaila ble Allergies, Adverse Reactions, Alerts Substance Reaction Status Criticality No Known Allergies Active No Inform ation Medications Medication Instructions Dosage Effective Dates (start - stop) Status Comments albuterol sulfate 2.5 mg/3 mL (0.083 %) solution for nebulization inhale 3 milliliter by nebulization route 3 times every day as needed 2.5 MG - Active Flovent HFA 110 mcg/actuation aerosol inhaler inhale 1 puff by inhalation route 2 times every day - Active Ventolin HFA 90 mcg/actuation aerosol inhaler inhale 2 puff by inhalation route every 4 - 6 hours as needed - Active Sprintec (28) 0.25 mg-35 mcg tablet - Active Ventolin HFA 90 mcg/actuation aerosol inhaler inhale 2 puff by inhalation route every 4 - 6 hours as needed - No Longer Active Ventolin HFA 90 mcg/actuation aerosol inhaler inhale 2 puff by inhalation route every 4 - 6 hours as needed - No Longer Active Afluria Qd 2019- (36 mos up)(PF)60 mcg (15 mcg x4)/0.5 mL IM syringe - No Longer Active Procedures Procedure Date OFFICE/OUTPATIENT VISIT,EST, MOD 2020 Office/outpatient visit,est, mod Historical Dental Caries Historical PHQ-2/PHQ-9 Advance Directives Directive Yes / No Effective Date File Name No Information Encounters Encounter Description Practice Location Reason(s) For Visit Diagnoses Date Provider Providers Copied on Encounter OFFICE/OUTPAT IENT VISIT,EST, MOD [facility], [id number] , [place], [place], [id number], [place] tel:[phone] [facility] asthma (chief complaint)m edication refill (chief complaint) Asthma Flaquita Robles. [address] [place], [place], [id number], [place]. tel:[phone] [facility], [id number] , [place], [place], [id number], [place] tel:[phone] [facility] No Information Flaquita Robles. [address], [place], [place], [id number], [place]. tel:[phone] [facility], [id number] , [place], [place], [id number], [place] tel:[phone] [facility] No Information Flaquita Robles. [address], [place], [place], [id number], [place]. tel:[phone] Office/outpat ient visit,est, mod [facility], [id number] , [place], [place], [id number], [place] tel:[phone] [facility] No Information Flaquita Robles. [address], [place], [place], [id number], . tel:[phone] Family History Family Member Type Diagnosis Age At Onset No Information Payers Payer name Insurance type Covered libertarian ID Heidi Concepcion (s) [id number] Social History Type Description Quantity Date Captured Comments Alcohol Use Details beer 2 beers occasionally Caffeine Use Details coffee 3 cups per day Tobacco Use Status Current non-smoker Smoking Status Never smoker Non-Smoking Tobacco Use Details : No Details Available : No Details Available Sex Female Sexual Orientation Bisexual Gender Identity Female Vital Signs Date / Time: Height Weight BMI Pulse Rate Blood Pressure Temperature Respiratory Rate Body Surface Area Head Circumference Head Circ. Percentile Wt./Romario. Percentile BMI percentile Pulse Ox Inhaled Ox 1:15 PM 63.00 in 64.682 kg (142.60 lbs) 25.2 6 kg/m eter (2) 96 /min 128/85 mm[Hg] 98.50 F 22 /min 1.70 meter(2) 98 % Chief Complaint And Reason For Visit From encounter dated '11/25/2020 13:30'. asthma (chief complaint). Description: The initial visit date was 11/25/2020. The symptoms have notchanged. Context: seasonal. Pertinent negatives include awakening with cough, dyspnea at rest and wheezing. Additional information: Has been out of flovent for several months. Over last couple weeks has been using albuterol more for tightness in chest that comes intermittently. Didn't have t his when she had flovent. medication refill (chief complaint) Reason For Referral Reason For Referral No Information History Of Present Illness Encounter Date Complaint History Of Prese nt Illness asthma The initial visi t date was 11/25/2020. The symptoms have not changed. Context: seasonal. Pertinent negatives include awakening with cough, dyspnea at rest and wheezing. Additional information: Has been out of flovent for several months. Over last couple weeks has been using albuterol more for tightness in chest that comes intermittently. Didn't have this when she had flovent. medication refill Functional Status Date Functional Assessmen t Pain Score 0/10 Medications Administered Medication Instructions Dosage Effective Dates (start - stop) Status Comments Ventolin HFA 90 mcg/actuation aerosol inhaler inhale 2 puff by inhalation route every 4 - 6 hours as needed - No Longer Active Instructions Date Instruction Additional Infor mation No Information Assessments Type Assessment Date assessment Asthma impression will restart flovent return sooner if breathing is not well controlled w/ floventhas had covid vaccines Mental Status Date Cognitive Assessment Orientation - [place] ed to time, place, person, situation. Patient Care Teams Name Effective Dates (start - stop) Status Members No Information
[2024-11-13 12:20] LABS: Free T4 Free Thyroxine 1.05 ng/dL (0.78-2.19)
== END 2024-11-13 10:33 | disposition home or self-care (01) ==
LOC: ANHLAB 10:34
PROVIDERS: PCP Nurse Practitioner; Visit Provider Nurse Practitioner
DX: Z00.00 Encounter for general adult medical examination without abnormal findings (principal)
CPT/HCPCS: 36415; 80053; 80061; 84439; 84443; 85027